=== PATIENT | female | born 1985 | race Caucasian/White ===

== ENCOUNTER → 2016-08-25 | Outpatient (CLI) | payer OTHER ==
[2016-08-25 11:03] LABS: ALT 25 U/L (9-52); AST 19 U/L (14-36); Alkaline Phosphatase 66 U/L (38-126); Anion Gap 17 mmol/L; Blood Urea Nitrogen 8 mg/dL (7-17); Calcium 9.6 mg/dL (8.4-10.2); Carbon Dioxide 20 mmol/L (22-30); Chloride 105 mmol/L (98-107); Cholesterol 247 mg/dL (<200); Glucose 158 mg/dL (74-99); HDL Cholesterol 49 mg/dL (40-60); Non-African American GFR(MDRD) >60 (>60 ml/min/1.73 sqM); Potassium 4.4 mmol/L (3.5-5.1); Sodium 142 mmol/L (137-145); Total Bilirubin 0.8 mg/dL (0.2-1.3); Triglycerides 302 mg/dL (<150)
== END | disposition home or self-care (01) ==
LOC: LABWHC1 10:28
PROVIDERS: ATTEND Internal Medicine Endocrinology, Diabetes & Metabolism
DX: E11.65 Type 2 diabetes mellitus with hyperglycemia (principal)
CPT/HCPCS: 36415; 80053; 80061; 82043

== ENCOUNTER → 2016-11-04 | Outpatient (CLI) | payer OTHER ==
[2016-11-04 21:36] LABS: Hemoglobin A1C 8.4 % (4.2-6.1)
== END | disposition home or self-care (01) ==
LOC: LABWHC1 15:59
PROVIDERS: ATTEND Internal Medicine Endocrinology, Diabetes & Metabolism
DX: E11.65 Type 2 diabetes mellitus with hyperglycemia (principal); E03.8 Other specified hypothyroidism
CPT/HCPCS: 36415; 83036; 84443

== ENCOUNTER 2017-06-17 07:02 | Day surgery (SDC) | payer OTHER ==
[2017-06-15 14:09] VITALS: BMI 27.4
[~2017-06-17 07:02] MED LIST: DEXAMETHASONE SOD PHOSPHATE 10 MG/ML 1 ML VIAL IV ONE; LACTATED RINGERS 1,000 ML IV SCH; ONDANSETRON 4 MG/2 ML VIAL IVP ONE
[2017-06-17 07:14] VITALS: TEMP 98.2
[2017-06-17] MEDS ORDERED: LACTATED RINGERS 1,000 ML IV ONE (07:18)
[2017-06-17 07:25] LABS: Glucose,Whole Blood 161 mg/dL (75-99)
--- NOTE | 2017-06-17 07:49 | P.GSHP ---
History of Present Illness H&P Date: 06/17/17 Chief Complaint: History of colonic polyps This is a 29-year-old female who has a previous history of colonic polyps. Patient rents today for colonoscopy. Her last colonoscopy was 3 years ago. Past Medical History Past Medical History: Diabetes Mellitus, Hyperlipidemia Additional Past Medical History / Comment(s): migraines, no rx for cholesterol, History of Any Multi-Drug Resistant Organisms: None Reported Past Surgical History: Joint Replacement, Tonsillectomy Additional Past Surgical History / Comment(s): rt ear tympanoplasty, Cyst removed from Tailbone, 4 surgeries on rt knee(3 arthroscopy) rt knee replacement , Past Anesthesia/Blood Transfusion Reactions: No Reported Reaction Smoking Status: Never smoker - Past Family History Mother Family Medical History: No Reported History Medications and Allergies Home Medications Medication Instructions Recorded Confirmed Type Citalopram Hydrobromide [CeleXA] 40 mg PO BID 06/15/17 06/15/17 History Insulin Glargine,Hum.rec.anlog 20 - 25 unit SQ HS 06/15/17 06/15/17 History [Joaquinaglgiacomo Whitley U-100] Norethindrone AC-Eth Estradiol 1 tab PO HS 06/15/17 06/15/17 History [Loestrin 21 1-20 Tablet] Allergies Allergy/AdvReac Type Severity Reaction Status Date / Time No Known Allergies Allergy Verified 06/15/17 14:00 Surgical - Exam Vital Signs Temp Pulse Resp BP Pulse Ox 98.2 F 89 18 113/68 98 06/17/17 07:13 06/17/17 07:13 06/17/17 07:13 06/17/17 07:13 06/17/17 07:13 - General well developed, no distress - Eyes PERRL - ENT normal pinna - Neck no masses - Respiratory normal expansion - Cardiovascular Rhythm: regular - Abdomen Abdomen: soft, non tender Results - Labs Abnormal Lab Results - Last 24 Hours (Table) 06/17/17 Range/Units 07:22 POC Glucose (mg/dL) 161 H (75-99) mg/dL Assessment and Plan Assessment: History of colonic polyps. We'll perform colonoscopy.
--- NOTE | 2017-06-17 08:05 | P.OP ---
Date of Procedure: 06/17/17 Preoperative Diagnosis: History of colon polyps Postoperative Diagnosis: Normal colonoscopy Procedure(s) Performed: Colonoscopy Anesthesia: MAC Surgeon: Jaylon Titus Pathology: none sent Condition: stable Disposition: PACU Description of Procedure: PROCEDURE: The patient was placed on the endoscopy table in the lateral position. Digital rectal examination was performed which revealed no abnormalities. Flexible colonoscope was then placed in the patient's anus and passed throughout the entire colon. The ileocecal valve was visualized. The cecum, ascending, transverse, descending and sigmoid colon were normal. The rectum was normal as well. There were no masses, polyps or diverticula noted in the entire colon. SUMMARY OF FINDINGS: Normal colonoscopy.
[2017-06-17 08:14] VITALS: RESP 16
[2017-06-17 08:16] LABS: Glucose,Whole Blood 123 mg/dL (75-99)
[2017-06-17 08:27] VITALS: BP 109/71; PULSE 82
== END 2017-06-17 08:39 | disposition home or self-care (01) ==
LOC: ORWHC2ENDO 07:02
PROVIDERS: ATTEND Surgery
DX: Z12.11 Encounter for screening for malignant neoplasm of colon (principal); Z86.010 Personal history of colon polyps; E78.5 Hyperlipidemia, unspecified; E11.9 Type 2 diabetes mellitus without complications; Z79.4 Long term (current) use of insulin; F41.9 Anxiety disorder, unspecified; Z79.3 Long term (current) use of hormonal contraceptives; Z79.899 Other long term (current) drug therapy

== ENCOUNTER → 2019-03-29 | Outpatient (CLI) | payer BC ==
--- NOTE | 2019-03-29 14:44 | US ---
EXAMINATION TYPE: US carotid duplex BILAT DATE OF EXAM: 03/29/2019 COMPARISON: NONE CLINICAL HISTORY: 34-year-old female I10 hypertension; high cholesterol per patient. TECHNIQUE: Carotid duplex ultrasound examination. In direct Doppler criteria was utilized. FINDINGS: EXAM MEASUREMENTS: RIGHT: Peak Systolic Velocity (PSV) cm/sec ----- Right CCA: 69.4 ----- Right ICA: 108.4 ----- Right ECA: 70.9 ICA/CCA ratio: 1.6 RIGHT: End Diastole cm/sec ----- Right CCA: 37.2 ----- Right ICA: 57.8 ----- Right ECA: 22.0 LEFT: Peak Systolic Velocity (PSV) cm/sec ----- Left CCA: 105.3 ----- Left ICA: 83.8 ----- Left ECA: 70.8 ICA/CCA ratio: 0.8 LEFT: End Diastole cm/sec ----- Left CCA: 41.8 ----- Left ICA: 36.1 ----- Left ECA: 17.3 VERTEBRALS (direction of flow): Right Vertebral: Antegrade Left Vertebral: Antegrade Rhythm: Normal Intimal thickening is noted at bilateral carotid bifurcation, but PSV is wnl bilaterally. IMPRESSION: No hemodynamically significant proximal ICA stenosis on either side. Criteria for Assigning % of Stenosis / Diameter reduction (Estimation based on the indirect measurements of the internal carotid artery velocities (ICA PSV). 1. Normal (no stenosis)=ICA PSV < 125 cm/s: ratio < 2.0: ICA EDV<40 cm/s. 2. Less than 50% stenosis=ICA PSV < 125 cm/s: ratio < 2.0: ICA EDV<40 cm/s. 3. 50 to 69% stenosis=ICA PSV of 125 to 230 cm/s: ration 2.0 ? 4.0: ICA EDV 40-100 cm/s. 4. Greater than 70% stenosis to near occlusion= ICA PSV > 230 cm/s: ratio > 4.0: ICA EDV > 100 cm/s. 5. Near occlusion= ICA PSV velocities may be low or undetectable: variable ratio and ICA EDV. 6. Total occlusion=unable to detect flow.
== END | disposition home or self-care (01) ==
LOC: RADUSWWP 12:12
PROVIDERS: ATTEND Internal Medicine Endocrinology, Diabetes & Metabolism
DX: I10 Essential (primary) hypertension (principal); E04.2 Nontoxic multinodular goiter; E03.9 Hypothyroidism, unspecified; E06.3 Autoimmune thyroiditis; E10.65 Type 1 diabetes mellitus with hyperglycemia; E78.2 Mixed hyperlipidemia; Z46.81 Encounter for fitting and adjustment of insulin pump; E55.9 Vitamin D deficiency, unspecified; E66.8 Other obesity
CPT/HCPCS: 93880

== ENCOUNTER 2019-06-17 15:09 | Emergency (ER) | payer BC ==
[2019-06-17 15:14] VITALS: TEMP 98
--- NOTE | 2019-06-17 15:56 | ED ---
URI HPI - General Chief Complaint: Upper Respiratory Infection Stated Complaint: pneumonia Time Seen by Provider: 06/17/19 15:16 Source: patient Mode of arrival: ambulatory Limitations: no limitations - History of Present Illness Initial Comments: Patient is a 34-year-old female presenting to emergency Department with complaints of a persistent cough 3 weeks. Patient states her cough started as mild and has increased in the last couple weeks. Patient did go to urgent care earlier this week and was diagnosed with pneumonia and bronchitis. They did not want to put the patient on steroids secondary to her being diabetic so they started doxycycline as well as an inhaler. She states that she feels like her symptoms have not gotten any better. Patient did call back to urgent care today and is just that she go to the ER for further evaluation. Patient denies any chest pain, shortness of breath. She denies fever, chills, nausea, vomiting, ab dominal pain. She has no other complaints at this time. Upon arrival to the ER, her vital signs are stable. - Related Data Home Medications Medication Instructions Recorded Confirmed Citalopram Hydrobromide [CeleXA] 40 mg PO BID 06/15/17 06/15/17 Insulin Glargine,Hum.rec.anlog 20 - 25 unit SQ HS 06/15/17 06/15/17 [Basaglar Kwikpen U-100] Norethindrone AC-Eth Estradiol 1 tab PO HS 06/15/17 06/15/17 [Loestrin 21 1-20 Tablet] Previous Rx's Medication Instructions Recorded methylPREDNISolone [Medrol Dose 4 mg PO DIRECTED #1 pack 06/17/19 Pack] Allergies Allergy/AdvReac Type Severity Reaction Status Date / Time amoxicillin Allergy Rash/Hives Verified 06/17/19 15:14 Review of Systems ROS Statement: Those systems with pertinent positive or pertinent negative responses have been documented in the HPI. ROS Other: All systems not noted in ROS Statement are negative. Past Medical History Past Medical History: Diabetes Mellitus, Hyperlipidemia Additional Past Medical History / Comment(s): migraines, no rx for cholesterol, History of Any Multi-Drug Resistant Organisms: None Reported Past Surgical History: Joint Replacement, Tonsillectomy Additional Past Surgical History / Comment(s): rt ear tympanoplasty, Cyst removed from Tailbone, 4 surgeries on rt knee(3 arthroscopy) rt knee replacement, Past Anesthesia/Blood Transfusion Reactions: No Reported Reaction Past Psychological History: Anxiety Smoking Status: Never smoker Past Alcohol Use History: None Reported Past Drug Use History: None Reported - Past Family History Mother Family Medical History: No Reported History General Exam - General Exam Comments Initial Comments: GENERAL: Well-appearing, well-nourished and in no acute distress. HEAD: Atraumatic, normocephalic. EYES: Pupils equal round and reactive to light, extraocular movements intact, sclera anicteric, conjunctiva are normal. ENT: TMs normal, nares patent, oropharynx clear without exudates. Moist mucous membranes. NECK: Normal range of motion, supple without lymphadenopathy or JVD. LUNGS: Breath sounds clear to auscultation bilaterally and equal. No wheezes rales or rhonchi. HEART: Regular rate and rhythm without murmurs, rubs or gallops. ABDOMEN: Soft, nontender, normoactive bowel sounds. No guarding, no rebound. No masses appreciated. : Deferred EXTREMITIES: Normal range of motion, no pitting or edema. No clubbing or cyanosis. PSYCH: Normal mood, normal affect. SKIN: Warm, Dry, normal turgor, no rashes or lesions noted. Limitations: no limitations Course Vital Signs 06/17/19 15:10 Temperature 98.0 F Pulse Rate 109 H Respiratory 18 Rate Blood Pressure 142/75 O2 Sat by Pulse 99 Oximetry Medical Decision Making - Medical Decision Making Patient is a 34-year-old female presenting with a cough that has been increasing over the past week. Patient did go to urgent care was diagnosed with pneumonia and bronchitis and started on doxycycline as well as an inhaler. Her cough has worsened. Vital signs stable upon arrival. Chest x-ray today shows no acute abnormalities, no signs of pneumonia. I discussed this finding with the patient. I suggested that this is bronchitis and that short course of steroids would be very beneficial. Patient agreed to 125 as all Medrol today in the ER and will be started on Medrol Dosepak starting tomorrow. She is stable for discharge at this time. She does have an inhaler at home and she will continue to use for her symptoms. Patient will follow up with PCP if symptoms persist. Return parameters were discussed with the patient she verbalized understanding. Disposition Clinical Impression: Bronchitis Disposition: HOME SELF-CARE Condition: Stable Instructions (If sedation given, give patient instructions): Acute Bronchitis (ED) Additional Instructions: Please return to the Emergency Department if symptoms worsen or any other concerns. Start oral steroids tomorrow as prescribed. Use inhaler as needed for cough or shortness of breath. Trial of Delsym cough syrup for cough. Prescriptions: methylPREDNISolone [Medrol Dose Pack] 4 mg PO DIRECTED #1 pack Is patient prescribed a controlled substance at d/c from ED?: No Referrals: Liz Oneal DO [Primary Care Provider] - 1-2 days
--- NOTE | 2019-06-17 16:05 | XR ---
EXAMINATION TYPE: XR chest 2V DATE OF EXAM: 06/17/2019 COMPARISON: 08/27/2014 HISTORY: Chest pain TECHNIQUE: Frontal and lateral views of the chest are obtained. FINDINGS: There is no focal air space opacity. No evidence for pneumothorax. No pleural effusion. The cardiac silhouette size is within normal limits. The osseous structures are grossly intact. IMPRESSION: 1. No acute cardiopulmonary process.
[2019-06-17] MEDS ORDERED: methylPREDNISolone SOD SUCCI 125 MG/2 ML VIAL IM ONE (16:14)
[2019-06-17 16:30] VITALS: BP 132/76; PULSE 100; RESP 16
== END 2019-06-17 16:30 | disposition home or self-care (01) ==
LOC: EC 15:09
DX: J40 Bronchitis, not specified as acute or chronic (principal); E11.9 Type 2 diabetes mellitus without complications; F41.9 Anxiety disorder, unspecified; Z79.4 Long term (current) use of insulin; Z88.0 Allergy status to penicillin; Z96.651 Presence of right artificial knee joint
CPT/HCPCS: 71046; 99283; 96372; J2930

== ENCOUNTER 2020-01-03 21:22 | Emergency (ER) | payer BC ==
[2020-01-03 22:20] LABS: Basophils # (A) 0.1 k/uL (0-0.2); Basophils % (A) 1 %; Eosinophils # (A) 0.1 k/uL (0-0.7); Eosinophils % (A) 2 %; HCT 42.9 % (34.0-46.0); HGB 14.5 gm/dL (11.4-16.0); Lymphocytes # (A) 1.8 k/uL (1.0-4.8); Lymphocytes % (A) 26 %; MCH 30.3 pg (25.0-35.0); MCHC 33.8 g/dL (31.0-37.0); MCV 89.7 fL (80.0-100.0); Mean Platelet Volume 7.1; Monocytes # (A) 0.4 k/uL (0-1.0); Monocytes % (A) 5 %; Neutrophils # (A) 4.6 k/uL (1.3-7.7); Neutrophils % (A) 65 %; Platelet Count 246 k/uL (150-450); RBC 4.79 m/uL (3.80-5.40); RDW 12.6 % (11.5-15.5); WBC 7.1 k/uL (3.8-10.6)
[2020-01-03 22:22] LABS: Appearance,Urine Clear (Clear); Bilirubin,Urine Negative (Negative); Blood,Urine Negative (Negative); Color,Urine Light Yellow; Glucose,Urine (UA) 4+ (Negative); Leukocyte Esterase,Urine Negative (Negative); Nitrite,Urine Negative (Negative); PH, Urine 5.5 (5.0-8.0); Protein,Urine Negative (Negative); Specific Gravity,Urine 1.039 (1.001-1.035); Urobilinogen,Urine <2.0 mg/dL (<2.0)
[2020-01-03 22:33] LABS: ALT 20 U/L (4-34); AST 25 U/L (14-36); African American GFR (CKD) >90 (>60 ml/min/1.73 sqM); Albumin 5.1 g/dL (3.5-5.0); Alkaline Phosphatase 101 U/L (38-126); Anion Gap 13 mmol/L; Blood Urea Nitrogen 13 mg/dL (7-17); Calcium 9.4 mg/dL (8.4-10.2); Carbon Dioxide 21 mmol/L (22-30); Chloride 98 mmol/L (98-107); Glucose 312 mg/dL (74-99); Non-African American GFR(CKD) >90 (>60 ml/min/1.73 sqM); Potassium 3.9 mmol/L (3.5-5.1); Sodium 132 mmol/L (137-145); Total Protein 7.7 g/dL (6.3-8.2)
[2020-01-03 22:34] LABS: Ketones,Urine 3+ (Negative)
[2020-01-03] MEDS ORDERED: SODIUM CHLORIDE 0.9% 1,000 ML IV ONE (22:39)
[2020-01-03] MEDS ORDERED: SODIUM CHLORIDE 0.9% 500 ML 500 ML IV ONE ×2 (22:39→22:55)
[2020-01-03] MEDS ORDERED: INSULIN REGULAR 100 UNIT/ML VIAL IV ONE (22:55)
[2020-01-03 23:12] LABS: Glucose,Whole Blood 238 mg/dL (75-99)
[2020-01-03 23:40] LABS: Glucose,Whole Blood 211 mg/dL (75-99)
[2020-01-03 23:51] VITALS: RESP 18; TEMP 97.9
[2020-01-04 00:27] LABS: ALT 17 U/L (4-34); AST 22 U/L (14-36); African American GFR (CKD) >90 (>60 ml/min/1.73 sqM); Albumin 3.9 g/dL (3.5-5.0); Alkaline Phosphatase 81 U/L (38-126); Anion Gap 9 mmol/L; Blood Urea Nitrogen 11 mg/dL (7-17); Calcium 7.9 mg/dL (8.4-10.2); Carbon Dioxide 20 mmol/L (22-30); Chloride 105 mmol/L (98-107); Glucose 203 mg/dL (74-99); Non-African American GFR(CKD) >90 (>60 ml/min/1.73 sqM); Potassium 3.5 mmol/L (3.5-5.1); Sodium 134 mmol/L (137-145); Total Bilirubin 0.6 mg/dL (0.2-1.3); Total Protein 6.2 g/dL (6.3-8.2)
[2020-01-04 01:02] LABS: Glucose,Whole Blood 333 mg/dL (75-99)
--- NOTE | 2020-01-04 01:04 | ED ---
General Adult HPI - General Chief complaint: Recheck/Abnormal Lab/Rx Stated complaint: High blood sugar Time Seen by Provider: 01/03/20 21:46 Source: patient, RN notes reviewed, old records reviewed Mode of arrival: ambulatory Limitations: no limitations - History of Present Illness Initial comments: 35-year-old female patient past history of type 1 diabetes [place] chief complaint of 2 days of polydipsia polyuria. Reports that her blood sugars have been elevated. Denies any other complaints or denies any cough congestion chest pain shortness of breath urinary symptoms. Systemic: Pt denies fatigue, fever/chills, rash. Pt denies weakness, night swe ats, weight loss. Neuro: Pt denies headache, visual disturbances, syncope or pre-syncope. HEENT: Pt denies ocular discharge or irritation, otalgia, rhinorrhea, pharyngitis or notable lymphadenopathy. Cardiopulmonary: Pt denies chest pain, SOB, heart palpitations, dyspnea on exertion. Abdominal/GI: Pt denies abdominal pain, n/v/d. : Pt denies dysuria, burning w/ urination, frequency/urgency. Denies new onset urinary or bowel incontinence. MSK: Pt denies myalgia, loss of strength or function in extremities. Neuro: Pt denies new onset weakness, paresthesias. - Related Data Home Medications Medication Instructions Recorded Confirmed Citalopram Hydrobromide [CeleXA] 40 mg PO DAILY 06/15/17 01/03/20 INSULIN LISPRO (For Pump) [humaLOG 0.01 units SQ-PUMP CONTINUOUS 01/03/20 01/03/20 (For Pump)] Levothyroxine Sodium [Synthroid] 137 mcg PO DAILY 01/03/20 01/03/20 Metoprolol Succinate [Toprol XL] 50 mg PO DAILY 01/03/20 01/03/20 Rosuvastatin Calcium [Crestor] 40 mg PO DAILY 01/03/20 01/03/20 Allergies Allergy/AdvReac Type Severity Reaction Status Date / Time amoxicillin Allergy Rash/Hives Verified 01/03/20 22:28 Review of Systems ROS Statement: Those systems with pertinent positive or pertinent negative responses have been documented in the HPI. ROS Other: All systems not noted in ROS Statement are negative. Past Medical History Past Medical History: Diabetes Mellitus, Hyperlipidemia, Hypertension, Thyroid Disorder Additional Past Medical History / Comment(s): migraines, no rx for cholesterol, History of Any Multi-Drug Resistant Organisms: None Reported Past Surgical History: Joint Replacement, Tonsillectomy Additional Past Surgical History / Comment(s): rt ear tympanoplasty, Cyst removed from Tailbone, 4 surgeries on rt knee(3 arthroscopy) rt knee replacement, Past Anesthesia/Blood Transfusion Reactions: No Reported Reaction Past Psychological History: Anxiety Smoking Status: Never smoker Past Alcohol Use History: None Reported Past Drug Use History: None Reported - Past Family History Mother Family Medical History: No Reported History General Exam - General Exam Comments Initial Comments: Constitutional: NAD, AOX3, Pt has pleasant affect. HEENT: NC/AT, trachea midline, neck supple, no lymphadenopathy. External ears appear normal, without discharge. Mucous membranes moist. Eyes PERRLA, EOM i ntact. There is no scleral icterus. No pallor noted. Cardiopulmonary: RRR, no murmurs, rubs or gallops, no JVD noted. Lungs CTAB in anterior and posterior carrion. No peripheral edema. Abdominal exam: Abdomen soft and non-distended. Abdomen non-tender to palpation in all 4 quadrants. Bowel sounds active in LLQ. No hepatosplenomegaly. No ecchymosis Neuro: CN II-XII grossly intact. No nuchal rigidity. No raccon eyes, no lara sign, no hemotympanum. No cervical spinal tenderness. MSK: Full active ROM in upper and lower extremities, 5/5 stregnth. Limitations: no limitations Course Vital Signs 01/03/20 01/03/20 21:24 23:50 Temperature 98.3 F 97.9 F Pulse Rate 107 H 78 Respiratory 20 18 Rate Blood Pressure 162/107 123/78 O2 Sat by Pulse 98 95 Oximetry Medical Decision Making - Medical Decision Making 35-year-old female patient past history of type 1 diabetes [place] chief complaint of 2 days of polydipsia polyuria. Reports that her blood sugars have been elevated. Denies any other complaints or denies any cough congestion chest pain shortness of breath urinary symptoms. Patient vital signs table, afebrile. Physical exam didn't display acute pathology. Laboratory investigations did reveal mildly elevated anion gap of 13. Hyperglycemia 312. 3+ ketones. Acetone negative. Patient was administered 2 L normal saline. P rior to administration of IV fluids patient's blood sugar dropped a 238. Patient was also initiated on 5 units of insulin IV. Repeat CMP doesn't display at angle Has closed 29. Mucosa is at 203. Patient reports that she is feeling better. We'll discharge and very close outpatient follow-up to monitor temperature and precautions. Case discussed with Dr. Gray. - Lab Data Result diagrams: 01/03/20 22:08 01/03/20 23:55 Lab Results 01/03/20 01/03/20 01/03/20 Range/Units 22:08 22:08 22:08 WBC 7.1 (3.8-10.6) k/uL RBC 4.79 (3.80-5.40) m/uL Hgb 14.5 (11.4-16.0) gm/dL Hct 42.9 (34.0-46.0) % MCV 89.7 (80.0-100.0) fL MCH 30.3 (25.0-35.0) pg MCHC 33.8 (31.0-37.0) g/dL RDW 12.6 (11.5-15.5) % Plt Count 246 (150-450) k/uL Neutrophils % 65 % Lymphocytes % 26 % Monocytes % 5 % Eosinophils % 2 % Basophils % 1 % Neutrophils # 4.6 (1.3-7.7) k/uL Lymphocytes # 1.8 (1.0-4.8) k/uL Monocytes # 0.4 (0-1.0) k/uL Eosinophils # 0.1 (0-0.7) k/uL Basophils # 0.1 (0-0.2) k/uL Sodium (137-145) mmol/L Potassium (3.5-5.1) mmol/L Chloride (98-107) mmol/L Carbon Dioxide (22-30) mmol/L Anion Gap mmol/L BUN (7-17) mg/dL Creatinine (0.52-1.04) mg/dL Est GFR (CKD-EPI)AfAm (>60 ml/min/1.73 sqM) Est GFR (CKD-EPI)NonAf (>60 ml/min/1.73 sqM) Glucose (74-99) mg/dL POC Glucose (mg/dL) (75-99) mg/dL POC Glu [place] ID Calcium (8.4-10.2) mg/dL Total Bilirubin (0.2-1.3) mg/dL AST (14-36) U/L ALT (4-34) U/L Alkaline Phosphatase (38-126) U/L Troponin I (0.000-0.034) ng/mL Total Protein (6.3-8.2) g/dL Albumin (3.5-5.0) g/dL Urine Color Light Yellow Urine Appearance Clear (Clear) Urine pH 5.5 (5.0-8.0) Ur Specific [place] 1.039 H (1.001-1.035) Urine Protein Negative (Negative) Urine Glucose (UA) 4+ H (Negative) Urine Ketones 3+ H (Negative) Urine Blood Negative (Negative) Urine Nitrite Negative (Negative) Urine Bilirubin Negative (Negative) Urine Urobilinogen <2.0 (<2.0) mg/dL Ur Leukocyte Esterase Negative (Negative) Urine HCG, Qual Not Detected (Not Detectd) Acetone, Qual (Negative) 01/03/20 01/03/20 01/03/20 Range/Units 22:08 22:08 23:10 WBC (3.8-10.6) k/uL RBC (3.80-5.40) m/uL Hgb (11.4-16.0) gm/dL Hct (34.0-46.0) % MCV (80.0-100.0) fL MCH (25.0-35.0) pg MCHC (31.0-37.0) g/dL RDW (11.5-15.5) % Plt Count (150-450) k/uL Neutrophils % % Lymphocytes % % Monocytes % % Eosinophils % % Basophils % % Neutrophils # (1.3-7.7) k/uL Lymphocytes # (1.0-4.8) k/uL Monocytes # (0-1.0) k/uL Eosinophils # (0-0.7) k/uL Basophils # (0-0.2) k/uL Sodium 132 L (137-145) mmol/L Potassium 3.9 (3.5-5.1) mmol/L Chloride 98 (98-107) mmol/L Carbon Dioxide 21 L (22-30) mmol/L Anion Gap 13 mmol/L BUN 13 (7-17) mg/dL Creatinine 0.63 (0.52-1.04) mg/dL Est GFR (CKD-EPI)AfAm >90 (>60 ml/min/1.73 sqM) Est GFR (CKD-EPI)NonAf >90 (>60 ml/min/1.73 sqM) Glucose 312 H (74-99) mg/dL POC Glucose (mg/dL) 238 H (75-99) mg/dL POC Glu [place] ID Vi Almanza Calcium 9.4 (8.4-10.2) mg/dL Total Bilirubin 1.0 (0.2-1.3) mg/dL AST 25 (14-36) U/L ALT 20 (4-34) U/L Alkaline Phosphatase 101 (38-126) U/L Troponin I <0.012 (0.000-0.034) ng/mL Total Protein 7.7 (6.3-8.2) g/dL Albumin 5.1 H (3.5-5.0) g/dL Urine Color Urine Appearance (Clear) Urine pH (5.0-8.0) Ur Specific [place] (1.001-1.035) Urine Protein (Negative) Urine Glucose (UA) (Negative) Urine Ketones (Negative) Urine Blood (Negative) Urine Nitrite (Negative) Urine Bilirubin (Negative) Urine Urobilinogen (<2.0) mg/dL Ur Leukocyte Esterase (Negative) Urine HCG, Qual (Not Detectd) Acetone, Qual Negative (Negative) 01/03/20 01/03/20 01/04/20 Range/Units 23:39 23:55 01:01 WBC (3.8-10.6) k/uL RBC (3.80-5.40) m/uL Hgb (11.4-16.0) gm/dL Hct (34.0-46.0) % MCV (80.0-100.0) fL MCH (25.0-35.0) pg MCHC (31.0-37.0) g/dL RDW (11.5-15.5) % Plt Count (150-450) k/uL Neutrophils % % Lymphocytes % % Monocytes % % Eosinophils % % Basophils % % Neutrophils # (1.3-7.7) k/uL Lymphocytes # (1.0-4.8) k/uL Monocytes # (0-1.0) k/uL Eosinophils # (0-0.7) k/uL Basophils # (0-0.2) k/uL Sodium 134 L (137-145) mmol/L Potassium 3.5 (3.5-5.1) mmol/L Chloride 105 (98-107) mmol/L Carbon Dioxide 20 L (22-30) mmol/L Anion Gap 9 mmol/L BUN 11 (7-17) mg/dL Creatinine 0.49 L (0.52-1.04) mg/dL Est GFR (CKD-EPI)AfAm >90 (>60 ml/min/1.73 sqM) Est GFR (CKD-EPI)NonAf >90 (>60 ml/min/1.73 sqM) Glucose 203 H (74-99) mg/dL POC Glucose (mg/dL) 211 H 333 H (75-99) mg/dL POC Glu [place] Reva Alex Zackary Calcium 7.9 L (8.4-10.2) mg/dL Total Bilirubin 0.6 (0.2-1.3) mg/dL AST 22 (14-36) U/L ALT 17 (4-34) U/L Alkaline Phosphatase 81 (38-126) U/L Troponin I (0.000-0.034) ng/mL Total Protein 6.2 L (6.3-8.2) g/dL Albumin 3.9 (3.5-5.0) g/dL Urine Color Urine Appearance (Clear) Urine pH (5.0-8.0) Ur Specific [place] (1.001-1.035) Urine Protein (Negative) Urine Glucose (UA) (Negative) Urine Ketones (Negative) Urine Blood (Negative) Urine Nitrite (Negative) Urine Bilirubin (Negative) Urine Urobilinogen (<2.0) mg/dL Ur Leukocyte Esterase (Negative) Urine HCG, Qual (Not Detectd) Acetone, Qual (Negative) Disposition Clinical Impression: Hyperglycemia Disposition: ADMITTED IP TO THIS HOSP Condition: Stable Instructions (If sedation given, give patient instructions): Diabetic Hyperglycemia (ED) Additional Instructions: Follow-up with primary care provider tomorrow. Continue to closely monitor blood sugar at home and take insulin as directed. Return to ER if any worsening symptoms. Is patient prescribed a controlled substance at d/c from ED?: No Referrals: Liz Oneal DO [Primary Care Provider] - 1-2 days
[2020-01-04] MEDS ORDERED: SODIUM CHLORIDE 0.9% 1,000 ML IV ONE (01:15)
[2020-01-04 02:14] LABS: Glucose,Whole Blood 205 mg/dL (75-99)
[2020-01-04 02:29] VITALS: BP 130/71; PULSE 80
== END 2020-01-04 02:29 | disposition other institution (70) ==
LOC: EC 21:22
DX: E10.65 Type 1 diabetes mellitus with hyperglycemia (principal); F41.9 Anxiety disorder, unspecified; E07.9 Disorder of thyroid, unspecified; I10 Essential (primary) hypertension; E78.5 Hyperlipidemia, unspecified; Z79.899 Other long term (current) drug therapy; Z79.890 Hormone replacement therapy; Z96.651 Presence of right artificial knee joint; Z88.0 Allergy status to penicillin
CPT/HCPCS: 36415; 80053; 81003; 81025; 82009; 84484; 85025; 93005; 96360; 96361; 99285

== ENCOUNTER → 2021-03-30 | Outpatient (CLI) | payer BC ==
[2021-03-30 16:27] LABS: Basophils % (A) 0 %; Eosinophils # (A) 0.1 k/uL (0-0.7); Eosinophils % (A) 2 %; HCT 43.7 % (34.0-46.0); HGB 14.8 gm/dL (11.4-16.0); Lymphocytes # (A) 1.7 k/uL (1.0-4.8); Lymphocytes % (A) 26 %; MCH 30.9 pg (25.0-35.0); MCHC 33.9 g/dL (31.0-37.0); MCV 91.3 fL (80.0-100.0); Mean Platelet Volume 7.2; Monocytes # (A) 0.3 k/uL (0-1.0); Monocytes % (A) 5 %; Neutrophils # (A) 4.4 k/uL (1.3-7.7); Neutrophils % (A) 66 %; Platelet Count 254 k/uL (150-450); RBC 4.78 m/uL (3.80-5.40); RDW 12.9 % (11.5-15.5); WBC 6.6 k/uL (3.8-10.6)
== END | disposition home or self-care (01) ==
LOC: LABPAT 14:29
PROVIDERS: ATTEND Obstetrics & Gynecology
DX: Z01.818 Encounter for other preprocedural examination (principal); I10 Essential (primary) hypertension
CPT/HCPCS: 36415; 85025; 93005

== ENCOUNTER 2021-04-13 07:42 | Day surgery (SDC) | payer BC ==
[2021-04-10 08:41] VITALS: BMI 27.9
[~2021-04-13 07:42] MED LIST changes: -DEXAMETHASONE SOD PHOSPHATE 10 MG/ML 1 ML VIAL IV ONE; +DEXAMETHASONE SOD PHOSPHATE 4 MG/ML 1 ML VIAL IV ONE; +MIDAZOLAM 2 MG/2 ML VIAL IV PRN; +Pre Op ABX Message 1 EACH MISC MISCELLANE ONE; +SCOPOLAMINE 1.5MG/72HR PATCH TRANSDERM ONE
[2021-04-13 08:37] LABS: Glucose,Whole Blood 109 mg/dL (75-99)
[2021-04-13] MEDS ORDERED: PROPOFOL 10 MG/ML 20 ML VIAL IV ONE (09:11)
[2021-04-13] MEDS ORDERED: LIDOCAINE 1% INJ 10MG/ML (20 ML MDV) ONE (09:11)
[2021-04-13] MEDS ORDERED: SUCCINYLCHOLINE CHLORIDE 100 MG/5 ML SYR IV ONE (09:11)
[2021-04-13] MEDS ORDERED: NEOSTIGMINE 1 MG/ML 10 ML VIAL ONE (09:11)
[2021-04-13] MEDS ORDERED: fentaNYL (PF) 50 MCG/ML 2 ML AMP ONE (09:11)
[2021-04-13] MEDS ORDERED: ROCURONIUM 10 MG/ML (5 ML VIAL) IV ONE (09:11)
[2021-04-13] MEDS ORDERED: GLYCOPYRROLATE 0.2 MG/ML 2 ML VIAL ONE (09:11)
[2021-04-13] MEDS ORDERED: HYDROmorphone (PF) 1 MG/ML ONE (09:11)
[2021-04-13] MEDS ORDERED: KETOROLAC 15 MG/ML 1 ML VIAL ONE (09:11)
[2021-04-13] MEDS ORDERED: MIDAZOLAM 2 MG/2 ML VIAL ONE (09:11)
[2021-04-13] MEDS ORDERED: BUPIVACAINE (PF) 0.5% 30 ML VIAL SQ ONE ×2 (09:42→09:43)
[2021-04-13] MEDS ORDERED: LACTATED RINGERS 1,000 ML IV ONE (09:47)
[2021-04-13] MEDS ORDERED: SIMETHICONE 80 MG CHEWABLE PO PRN (10:12)
[2021-04-13] MEDS ORDERED: KETOROLAC 30 MG/ML 1 ML VIAL IVP PRN (10:12)
[2021-04-13] MEDS ORDERED: IBUPROFEN 600 MG TAB PO PRN (10:12)
[2021-04-13] MEDS ORDERED: ONDANSETRON 4 MG/2 ML VIAL IVP PRN (10:12)
[2021-04-13] MEDS ORDERED: Acetaminophen-Codeine 300-30mg TAB PO PRN ×2 (10:12)
[2021-04-13] MEDS ORDERED: diphenhydrAMINE 50 MG/ML 1 ML VIAL IVP PRN (10:12)
[2021-04-13] MEDS ORDERED: METOCLOPRAMIDE 5 MG/ML 2 ML VIAL IVP PRN (10:12)
[2021-04-13] MEDS ORDERED: LACTATED RINGERS 1,000 ML IV SCH (10:15)
[2021-04-13] MEDS: HYDROmorphone 0.5 MG/0.5 ML SYRINGE IVP PRN ×2 (10:16→10:31)
[2021-04-13 10:19] VITALS: TEMP 98.3
--- NOTE | 2021-04-13 10:20 | P.OP ---
Date of Procedure: 04/13/21 Preoperative Diagnosis: #1. Dysfunctional uterine bleeding #2. Undesired fertility Postoperative Diagnosis: Same Procedure(s) Performed: #1. Laparoscopic bilateral tubal occlusion with Filshie clips #2. Diagnostic hysteroscopy #3. Maira endometrial ablation Anesthesia: EMANI Surgeon: Raad Stewart Estimated Blood Loss (ml): 5 IV fluids (ml): 800 Urine output (ml): 25 Pathology: none sent Condition: stable Disposition: PACU Operative Findings: Preoperative pelvic examination demonstrated a roughly 4 week anteverted mobile normal shaped uterus with normal adnexa bilaterally. Intraoperatively, the uterus, tubes, and ovaries were entirely normal to inspection. There was some evidence of pelvic congestion that the patient has no symptoms for. A Filshie clip was firmly placed across the isthmic portion of each fallopian tube approximately 2-3 cm from the cornu on each side. There is no evidence of pathology in the pelvis to include endometriosis. The small intestine, large intestine, appendix, liver, gallbladder, diaphragm all appeared normal. Using the hysteroscope, the bilateral tubal ostia were seen and there was some shaggy endometrium present throughout though no evidence of any pathology to include fibroids or polyps. The uterus sounded to 8 cm with a cervical length of approximately 2-1/2-3 cm. The length on the Maira tool was set at 5.5 cm. The total run time of 120 seconds was reached at which time the procedure was deemed complete and the tool removed and discarded. The postprocedural hysteroscopic result appeared to be excellent. The patient is a potential candidate for vaginal hysterectomy in the future should it become necessary. Description of Procedure: Patient was prepped and draped in usual fashion after general endotracheal anesthesia was administered by the anesthesiologist. A weighted speculum was placed and the anterior lip of the cervix grasped with a sickle 2 tenaculum on placement of an acorn cannula. The bladder was drained of approximately 25 mL of clear delia urine. Attention was turned to the abdomen where a roughly 5 mm incision was made in a vertical fold of the umbilicus allowing insertion of a 5 mm optical trocar under direct visualization without difficulty. A pneumoperitoneum was established and Trendelenburg positioning utilized. A site was selected approximate 4-5 cm above the pubic symphysis in the midline where an 8 mm incision was made in the transverse plane allowing insertion of an 8 mm optical port under direct vision station without difficulty. The blunt probe was utilized to sweep from the bowel the pelvis and the findings are as noted above. There is no evidence of any pathology throughout. The probe was replaced with a Filshie clip applicator which was utilized to place a Filshie clip across the isthmic portion of the fallopian tube on the right side approximately 2-3 centers from the cornu where was firmly affixed. A similar operation was carried out on the left side without difficulty. The upper abdomen was explored with the normal findings as noted above. The scope was removed and the pneumoperitoneum entirely evacuated through the 2 ports which were then removed. The incisions were closed with interrupted subcuticular stitches of 4-0 Vicryl. The 2 incisions were then infused with a total of 10 mL of half percent Marcaine without epinephrine equally divided between the 2 incisions. There were then dressed with Steri-Strips and Band-Aids as necessary. Attention was returned to the vagina where the weighted speculum was replaced and the acorn cannula removed. Uterus was sounded to 8 cm as noted above with a initial cervical length of 3 cm using the sound. Serial dilation was carried out to admit the diagnostic hysteroscope which was placed into the endometrial cavity and distended with saline. The findings are as noted above with bilateral tubal ostia seen. There was some generally shaggy endometrium throughout the cavity but no evidence of pathology. The scope was then set aside and the Hegar dilator included with the Darvocet was utilized and determine the cervical length to be 2-1/2 cm. The Maira tool was then placed into the endometrial cavity, opened, and seated well. The balloon was inflated and the seal was demonstrated. The settings on the length of the tool was 5.5 cm area the cavity check was attempted and passed without difficulty and the run was started. After total of 120 seconds, as in every case, the tool red procedure complete. The tool was closed, removed, and discarded and the diagnostic scope replaced within the cavity. The result appeared to be excellent. All instrumentation was then removed. The patient was noted to be potential candidate for vaginal instructed he should become necessary. There was no ongoing bleeding either from the cervix or from the tenaculum site. A survey blood loss for the entire case was approximate 5 mL. There were no complications. All sponge, instrument, needle counts were correct. The patient tolerated the procedure well and proceeded to the recovery room in stable condition.
[2021-04-13 10:22] VITALS: RESP 16
[2021-04-13] MEDS ORDERED: Acetaminophen-Codeine 300-30mg TAB PO ONE (11:20)
[2021-04-13 11:52] VITALS: BP 137/86; PULSE 81
== END 2021-04-13 12:10 | disposition home or self-care (01) ==
LOC: OR 07:42
PROVIDERS: ATTEND Obstetrics & Gynecology
DX: N93.8 Other specified abnormal uterine and vaginal bleeding (principal); E78.5 Hyperlipidemia, unspecified; E11.9 Type 2 diabetes mellitus without complications; E03.9 Hypothyroidism, unspecified; Z79.890 Hormone replacement therapy; Z79.4 Long term (current) use of insulin
CPT/HCPCS: 58563; 58671; 81025; J2250; J1100; J2710; J2405; J2001; J3010; J1170 ×2; J1885; J0330; J2704

== ENCOUNTER → 2021-05-05 | Outpatient (CLI) | payer BC ==
--- NOTE | 2021-05-07 12:11 | MM ---
Reason for exam: screening (asymptomatic). Baseline mammogram. History: Took hormonal contraceptives for 10 years. Physical Findings: Nurse did not find any significant physical abnormalities on exam. MG Screening Mammo w CAD Bilateral CC and MLO view(s) were taken. There are scattered fibroglandular densities. There is no discrete abnormality. ASSESSMENT: Negative, BI-RAD 1 RECOMMENDATION: Routine screening mammogram of both breasts at age 39.
== END | disposition home or self-care (01) ==
LOC: RADMAMWWP 03-30 14:27
PROVIDERS: ATTEND Obstetrics & Gynecology
DX: Z12.31 Encounter for screening mammogram for malignant neoplasm of breast (principal)
CPT/HCPCS: 77067

== ENCOUNTER → 2022-03-19 | Outpatient (CLI) | payer BC ==
--- NOTE | 2022-03-19 14:43 | NM ---
EXAMINATION TYPE: NM bone 3 phase DATE OF EXAM: 03/19/2022 1:23 PM CLINICAL INDICATION:Female, 37 years old with history of [id number]; Triple phase bone scintigraphy was performed following the injection of 22.7 mCi Tc 99m MDP. Immedia te images and 4.5 hours post injection images acquired. FINDINGS: Positive three-phase bone scan with positive register uptake around the right knee arthroplasty on bl ood flow, pool and delayed phases of imaging. This findings are felt to be centered around the distal femur and proximal tibia prosthesis.. IMPRESSION: Abnormal three-phase radiotracer uptake around the right knee arthroplasty. Findings can be secondary to mechanical loosening versus infection which cannot entirely excluded. Correlate with radiographs, inflammatory markers and consideration for arthrocentesis is recommended.
== END | disposition home or self-care (01) ==
LOC: RADNMMAIN 07:32
DX: M25.561 Pain in right knee (principal); T84.84XA Pain due to internal orthopedic prosthetic devices, implants and grafts, initial encounter
CPT/HCPCS: 78315; A9503

== ENCOUNTER → 2022-04-27 | Outpatient (CLI) | payer BC ==
--- NOTE | 2022-04-27 10:08 | CA ---
Exercise Stress Test Report Name: Shaina Orellana Exam Date: 04/27/2022 08:45 Exam Location: [place] Stress Ht (in): 64 Wt (lb): 145 BSA: 1.71 Ordering Phys: Darron Rae MD Referring Phys: Jeanie Muñoz PAC Technologist: Jose Roberto Hermosillo Age: 37 Gender: F : 1985 Procedure CPT: Indications: Z82.49 FAMILY HX OF ISCHEM HEART DIS AND OTH DIS O ICD-10 Codes: Patient History: Medications: HUMALOG, SYNTHROID, CELEXA, ADOROL Meds past 24 hrs: Pretest Chest Pain: STRESS TEST Carlos Protocol Exercise Duration (min:sec): 10:[address] Depressions (mm): Angina Score: Wolff Score: Resting HR (bpm): 87 Peak HR (bpm): 161 Resting BP (mmHg): 110 / 62 Peak BP (mmHg): 152 / 72 MPHR: 182 Target HR: 155 % MPHR: 88 METS: 12.1 Total Dose: Peak Dose: Atropine: Double Product: 92268 BP Response: Stress Termination: Reached target heart rate Stress Symptoms: NO SYMPTOMS Stress Summary: Baseline EKG revealed normal sinus rhythm without significant ST-T changes. Patient walked for 10 minutes 28 seconds and achieved a maximum heart rate of 160 bpm. No symptoms of angina EKG did not reveal any ST segment changes to indicate ischemia. There was no significant arrhythmia. This is a negative stress test with excellent exercise capacity ECG ANALYSIS Resting ECG: Stress ECG: CONCLUSIONS Dr. Sree Atkinson MD (Electronically Signed) Final Date: 27 April 2022 10:07
== END | disposition home or self-care (01) ==
LOC: RADNMMAIN 08:23
PROVIDERS: ATTEND Family Medicine
DX: Z82.49 Family history of ischemic heart disease and other diseases of the circulatory system (principal)
CPT/HCPCS: 93017

== ENCOUNTER → 2024-11-07 | Outpatient (CLI) | payer OTHER ==
--- NOTE | 2024-11-07 14:40 | MM ---
Reason for Exam: Screening (asymptomatic). Last mammogram was performed 3 year(s) and 6 month(s) ago. Patient History: Menarche at age 11. First Full-Term at age 29. Late child-bearing (after 29). Patient has history of breast feeding. Patient used Hormonal Contraceptives for 10 years. 2022, Bilateral Reduction. Risk Values: Allyson 5 year model risk: 0.8%. NCI Lifetime model risk: 13.6%. Prior Study Comparison: 05/05/2021 Bilateral Screening Mammogram, [facility]. Tissue Density: There are scattered areas of fibroglandular density. Findings: Analyzed By CAD. Focal asymmetry subareolar region of the right breast is more prominent versus prior. Suspect summation density. Overall Assessment: Incomplete: need additional imaging evaluation, BI-RAD 0 Management: Diagnostic Mammogram of the right breast. Advise spot 3-D and 3-D true lateral views of right breast. Patient should continue monthly self-breast exams. A clinical breast exam by your physician is recommended on an annual basis. This exam should not preclude additional follow-up of suspicious palpable abnormalities. Note on Allyson scores and lifetime risk: 1. A Allyson score greater than 3% is considered moderate risk. If this is the case, consider specialist referral to assess eligibility for a risk reducing agent. 2. If overall lifetime risk for the development of breast cancer is 20% or higher, the patient may qualify for future screening with alternating mammogram and breast MRI. [facility], , 11/07/2024 2:37 PM. Electronically signed and approved by: Sina Arellano M.D.
== END | disposition home or self-care (01) ==
LOC: RADMAMWWP 12:46
PROVIDERS: ATTEND Family Medicine
DX: Z12.31 Encounter for screening mammogram for malignant neoplasm of breast (principal); R92.323 Mammographic fibroglandular density, bilateral breasts; Z92.0 Personal history of contraception
CPT/HCPCS: 77067

== ENCOUNTER → 2024-11-12 | Outpatient (CLI) | payer OTHER ==
--- NOTE | 2024-11-12 13:21 | MM ---
Reason for Exam: Additional evaluation requested from abnormal screening. Last screening mammogram was performed less than 1 month ago. Patient History: Menarche at age 11. First Full-Term at age 29. Late child-bearing (after 29). Patient has history of breast feeding. Patient used Hormonal Contraceptives for 10 years. 2022, Bilateral Reduction. Risk Values: Allyson 5 year model risk: 0.8%. NCI Lifetime model risk: 13.6%. Tissue Density: Right: There are scattered areas of fibroglandular density. Findings: Analyzed By CAD. Reduction mammoplasty noted. Subareolar asymmetric density becomes less defined on additional views favoring superimposition shadow and postsurgical change. No persisting abnormality on spot 3-D MLO. Six-month follow-up recommended to ensure a stable appearance. Overall Assessment: Probably benign, BI-RAD 3 Management: Diagnostic Mammogram of the right breast in 6 months. Results were given to the patient verbally at the time of exam. Patient should continue monthly self-breast exams. A clinical breast exam by your physician is recommended on an annual basis. This exam should not preclude additional follow-up of suspicious palpable abnormalities. Note on Allyson scores and lifetime risk: 1. A Allyson score greater than 3% is considered moderate risk. If this is the case, consider specialist referral to assess eligibility for a risk reducing agent. 2. If overall lifetime risk for the development of breast cancer is 20% or higher, the patient may qualify for future screening with alternating mammogram and breast MRI. [facility], , 11/12/2024 1:17 PM. Electronically signed and approved by: Lauren Cobian M.D. Radiologist
== END | disposition home or self-care (01) ==
LOC: RADMAMWWP 12:39
PROVIDERS: ATTEND Family Medicine
DX: R92.8 Other abnormal and inconclusive findings on diagnostic imaging of breast (principal); R92.321 Mammographic fibroglandular density, right breast; Z92.0 Personal history of contraception
CPT/HCPCS: 77065; G0279; 77061